=== PATIENT | male | born 1940 | race Caucasian/White ===

== ENCOUNTER → 2016-08-19 | Outpatient (CLI) | payer MEDICARE ==
[~2016-08-19] MED LIST: ACIDOPHILUS1 EAC2 PO; ALDACTONE25 MG PO; ASPIRIN81 MG PO; COREG 12.5MG12.5 MG PO; COREG25 MG PO; COUMADIN 1MG TAB1 MG PO; COUMADIN5 MG PO; GLUCOPHAGE XR500 M1 PO; GLUCOTROL XL 22.5 MG PO; LASIX20 MG PO; LEVAQUIN500 MG PO; LIPITOR TAB 2020 MG PO; LISINOPRIL20 MG PO; METFORMIN HCL500 MG PO; TYLENOL W/CODEIN1 E1 PO
== END ==
LOC: KOH-I 10:00
DX: R42 Dizziness and giddiness (principal); R51 Headache; I67.82 Cerebral ischemia
CPT/HCPCS: 70450

== ENCOUNTER 2016-09-01 10:31 | Emergency (ER) | payer MEDICARE ==
[~2016-09-01 10:31] MED LIST changes: -COREG25 MG PO; -COUMADIN 1MG TAB1 MG PO; -GLUCOPHAGE XR500 M1 PO
[2016-09-01 12:04] LABS: HEMOGLOBIN 12.7 gm/dl (14.0-17.5); RED BLOOD COUNT 4.35 M/UL (4.20-5.50); WHITE BLOOD COUNT 11.3 K/UL (4.5-11.0)
[2016-09-01 12:40] LABS: BUN/CREATININE RATIO 33 (0-10)
== END 2016-09-01 15:57 | disposition home or self-care (01) ==
LOC: ER1 10:31
PROVIDERS: Emergency Medicine
DX: E11.65 Type 2 diabetes mellitus with hyperglycemia (principal); R11.0 Nausea; T42.6X5A Adverse effect of other antiepileptic and sedative-hypnotic drugs, initial encounter
CPT/HCPCS: 36415; 36600; 70450; 71020; 80053; 82140; 82550; 82553; 82803; 82962; 83605; 83690; 83874; 84443; 84484; 85025; 93005; 96361; 96374; 99285; J1815; J7030

== ENCOUNTER 2016-09-03 17:47 | Inpatient (IN) | payer MEDICARE ==
[~2016-09-03] VITALS: Ht 177.8 cm; Wt 83.0 kg
[2016-09-03 18:53] LABS: HEMOGLOBIN 14.9 gm/dl (14.0-17.5); RED BLOOD COUNT 5.09 M/UL (4.20-5.50); WHITE BLOOD COUNT 13.6 K/UL (4.5-11.0)
[2016-09-04] MEDS ORDERED: COREG25 MG PO (02:37)
[2016-09-04] MEDS ORDERED: LISINOPRIL20 MG PO (02:37)
[2016-09-04] MEDS ORDERED: GLUCOPHAGE XR500 M1 PO (02:38)
[2016-09-04] MEDS ORDERED: COUMADIN 1MG TAB1 MG PO (02:38)
[2016-09-04 03:22] LABS: HEMOGLOBIN 13.4 gm/dl (14.0-17.5); RED BLOOD COUNT 4.66 M/UL (4.20-5.50); WHITE BLOOD COUNT 14.7 K/UL (4.5-11.0)
== END 2016-09-04 07:48 | disposition expired | DRG 871 ==
LOC: ER1 17:47 → ZEROF 23:21 → CCU 23:21
PROVIDERS: Emergency Medicine; ADMIT Family Medicine
PROC: 30233K1 Transfusion of Nonautologous Frozen Plasma into Peripheral Vein, Percutaneous Approach (ICD-10-PCS; 2016-09-03)
PROC: 30233K1 Transfusion of Nonautologous Frozen Plasma into Peripheral Vein, Percutaneous Approach (ICD-10-PCS; 2016-09-03)
PROC: 30233K1 Transfusion of Nonautologous Frozen Plasma into Peripheral Vein, Percutaneous Approach (ICD-10-PCS; 2016-09-03)
PROC: 30233K1 Transfusion of Nonautologous Frozen Plasma into Peripheral Vein, Percutaneous Approach (ICD-10-PCS; 2016-09-03)
PROC: 5A1935Z Respiratory Ventilation, Less than 24 Consecutive Hours (ICD-10-PCS; principal; 2016-09-04)
PROC: 0BH17EZ Insertion of Endotracheal Airway into Trachea, Via Natural or Artificial Opening (ICD-10-PCS; 2016-09-04)
PROC: 30233K1 Transfusion of Nonautologous Frozen Plasma into Peripheral Vein, Percutaneous Approach (ICD-10-PCS; 2016-09-04)
DX: A41.9 Sepsis, unspecified organism (principal); R65.21 Severe sepsis with septic shock; J96.91 Respiratory failure, unspecified with hypoxia; K81.0 Acute cholecystitis; I47.2 Ventricular tachycardia; I13.0 Hypertensive heart and chronic kidney disease with heart failure and stage 1 through stage 4 chronic kidney disease, or unspecified chronic kidney disease; I50.22 Chronic systolic (congestive) heart failure; D68.9 Coagulation defect, unspecified; N17.9 Acute kidney failure, unspecified; E11.22 Type 2 diabetes mellitus with diabetic chronic kidney disease; E11.65 Type 2 diabetes mellitus with hyperglycemia; N18.3 Chronic kidney disease, stage 3 (moderate); I48.2 Chronic atrial fibrillation; E78.5 Hyperlipidemia, unspecified; T45.515A Adverse effect of anticoagulants, initial encounter; I49.01 Ventricular fibrillation; I46.9 Cardiac arrest, cause unspecified; Z95.810 Presence of automatic (implantable) cardiac defibrillator; Z66 Do not resuscitate; Z79.01 Long term (current) use of anticoagulants; Z79.84 Long term (current) use of oral hypoglycemic drugs; Z79.899 Other long term (current) drug therapy; Z98.890 Other specified postprocedural states; Z82.49 Family history of ischemic heart disease and other diseases of the circulatory system
CPT/HCPCS: 36415; 36600; 70450; 71010; 71020; 72125; 80053; 81001; 82009; 82140; 82272; 82550; 82553; 82803; 82962; 83605; 83690; 83874; 83880; 84443; 84484; 85025; 85610; 85730; 86850; 86900; 86901; 86927; 87040; 87086; 92950; 93005; 94002; 96361; 96372; 96374; 96375; 99285; A4628; J0171; J1815; J2001; J3370; J3430; J3475; J7030; J7050; P9017